=== PATIENT | male | born 1955 | race Asian ===

== ENCOUNTER 2016-12-08 13:41 | Outpatient (CLI) | payer OTHER ==
[2016-12-08 14:41] LABS: POTASSIUM 5.1 mmol/L (3.6-5.2)
[2016-12-08 15:57] LABS: PLATELET COUNT 400 K/uL (142-355)
== END 2016-12-08 14:45 | disposition home or self-care (01) ==
LOC: LAB 13:41
PROVIDERS: Family Medicine
DX: I10 Essential (primary) hypertension (principal); G89.4 Chronic pain syndrome; R35.1 Nocturia; M79.674 Pain in right toe(s)
CPT/HCPCS: 80053; 80061; 82306; 83735; 84153; 84439; 84443; 84550; 85027

== ENCOUNTER 2018-05-15 08:15 | Outpatient (CLI) | payer OTHER ==
[2018-05-15 08:44] LABS: PLATELET COUNT 318 K/uL (142-355)
== END 2018-05-15 21:29 | disposition home or self-care (01) ==
LOC: LABW 08:15
PROVIDERS: Family Medicine
DX: I10 Essential (primary) hypertension (principal); M10.9 Gout, unspecified; Z11.59 Encounter for screening for other viral diseases; K21.9 Gastro-esophageal reflux disease without esophagitis
CPT/HCPCS: 36415; 80053; 80061; 80074; 81000; 83735; 84439; 84443; 84550; 85027

== ENCOUNTER 2019-05-17 10:55 | Outpatient (CLI) | payer OTHER | END 2019-05-17 19:10 | disposition home or self-care (01) | LOC: RAD 10:55 | DX: S29.8XXA Other specified injuries of thorax, initial encounter (principal); R07.89 Other chest pain ==